=== PATIENT | male | born 1955 | race Caucasian/White ===

== ENCOUNTER 2021-01-25 05:16 | Day surgery (SDC) | payer MEDICARE, BC ==
[2021-01-16 12:07] LABS: BASOPHILS % (AUTO) 0.5 % (0-1); EOSINOPHILS # (AUTO) 0.2 X10'3 (0-0.9); EOSINOPHILS % (AUTO) 2.5 % (0-6); LYMPHOCYTES # (AUTO) 1.2 X10'3 (1.1-4.8); LYMPHOCYTES % (AUTO) 14.4 % (21-51); MEAN CORPUSCULAR HEMOGLOBIN 31.1 PG (27.0-31.0); MEAN CORPUSCULAR HGB CONC 34.4 g/dL (33.0-36.5); MEAN CORPUSCULAR VOLUME 90.5 FL (78-98); MEAN PLATELET VOLUME 7.4 FL (7.4-10.4); MONOCYTES # (AUTO) 0.7 X10'3 (0-0.9); MONOCYTES % (AUTO) 8.4 % (2-12); NEUTROPHILS # (AUTO) 6.2 X10'3 (1.8-7.7); NEUTROPHILS % (AUTO) 74.2 % (42-75); PRE OP HEMATOCRIT 42.7 % (42.0-52.0); PRE OP HEMOGLOBIN 14.7 g/dL (14.0-17.9); PRE OP PLATELET COUNT 255 X10'3 (140-440); RED BLOOD COUNT 4.72 X10'6 (4.70-6.10); RED CELL DISTRIBUTION WIDTH 14.5 % (11.5-14.5)
[2021-01-16 12:11] LABS: CLARITY,URINE CLEAR (Clear); COLOR,URINE YELLOW (Yellow); GLUCOSE, URINE NEGATIVE (Neg); PROTEIN,URINE NEGATIVE (Neg); UA COLLECTION TYPE NON-SPECIFIED
[2021-01-16 12:12] LABS: KETONES,URINE NEGATIVE (Neg); LEUKOCYTE ESTERASE ,URINE NEGATIVE (Neg); NITRITES, URINE NEGATIVE (Neg); OCCULT BLOOD,URINE TRACE-INTACT (Neg); UROBILINOGEN,URINE 0.2 E.U/dL (0.2-1.0)
[2021-01-16 12:26] LABS: HYALINE CASTS 0-3 /LPF (NEGATIVE); MUCUS STRANDS MODERATE /LPF (Neg); SQUAMOUS EPITHELIAL CELL,UR FEW /LPF (FEW)
[2021-01-16 12:27] LABS: BACTERIA,URINE 1+ /HPF (Neg); RBC,URINE 0-2 /HPF (0-2); WBC,URINE 0-4 /HPF (0-4)
[2021-01-16 12:27] LABS: ALBUMIN 3.6 G/DL (3.4-5.0); ALBUMIN/GLOBULIN RATIO 0.9 (1.1-1.5); ALKALINE PHOSPHATASE 90 IU/L (46-116); BLOOD UREA NITROGEN 19 MG/DL (7-18); BUN/CREATININE RATIO 19.8 (5.4-32.0); CALCIUM 9.4 MG/DL (8.5-10.1); CHLORIDE 108 MMOL/L (99-107); CREATININE 0.96 MG/DL (0.60-1.10); PRE OP ALT 40 U/L (30-65); PRE OP ANION GAP 13 (8-16); PRE OP AST 19 U/L (10-37); PRE OP BILIRUB, TOTAL 0.5 MG/DL (0.0-1.0); PRE OP GLUCOSE 104 MG/DL (70-104); PRE OP POTASSIUM 3.5 MMOL/L (3.4-5.1); PRE OP SODIUM 143 MMOL/L (135-145); TOTAL CARBON DIOXIDE 22.3 MMOL/L (24-32); TOTAL PROTEIN 7.6 G/DL (6.4-8.2); eGFR 78 ML/MIN
[2021-01-25] VITALS (11 sets, daily range): BP systolic 111–136; BP diastolic 63–94
[~2021-01-25] VITALS: Ht 175.3 cm; Wt 83.9 kg
[~2021-01-25 05:16] MED LIST: FLO0.4C PO; HYDR-3964 PO; LISI5TAB22 PO; ringers solution, lacted 1,000 ML IV SCH
[2021-01-25] MEDS ORDERED: cefazolin/dext.iso 2gm/50ml IV ONE (05:30)
[2021-01-25] MEDS ORDERED: famotidine 20mg tablet PO ONE (05:30)
[2021-01-25] MEDS ORDERED: BUPIVAcaine 0.5% inj/PF 30 ML ONE (06:50)
[2021-01-25] MEDS ORDERED: bacitracin 15gm ointment TP ONE (06:56)
[2021-01-25] MEDS ORDERED: acetaminophen 1,000mg/100ml IV 100 ML IV PRN (07:10)
[2021-01-25] MEDS ORDERED: ondansetron/PF 4mg/2ml inj IV PRN (07:10)
[2021-01-25] MEDS ORDERED: proCHLORperazine 10 MG/2 ml inj IV PRN (07:10)
[2021-01-25] MEDS ORDERED: morphine 4 MG/ML inj SYRINge IV PRN (07:10)
[2021-01-25] MEDS ORDERED: labetalol 20mg/4ml (5mg/ml) syringe IV PRN (07:10)
[2021-01-25] MEDS ORDERED: morphine 2 MG/ML inj. syringe IV PRN (07:10)
[2021-01-25] MEDS ORDERED: hydrALAZINE 20mg/ml inj. IV PRN (07:10)
[2021-01-25] MEDS ORDERED: ringers solution, lacted 1,000 ML IV SCH (07:10)
[2021-01-25] MEDS ORDERED: meperidine/PF 25mg/ml syringe IV PRN ×3 (07:10)
[2021-01-25] MEDS ORDERED: sevoflurane 250ml liquid IH ONE (07:12)
[2021-01-25] MEDS ORDERED: fentaNYL/PF 50MCG/1 ML 2ML syringe ONE (07:14)
[2021-01-25] MEDS ORDERED: midazolam 1 mg/ML 2ml injection ONE (07:18)
[2021-01-25] MEDS ORDERED: BUPIVAcaine 0.5% inj/PF 30 ml vial IJ ONE (07:43)
[2021-01-25] MEDS ORDERED: LIDOcaine 2% (20mg/ml) 5ml vial ONE (07:44)
[2021-01-25] MEDS ORDERED: propofol inj 20 ML IV ONE ×2 (07:44→08:18)
[2021-01-25] MEDS ORDERED: dexamethasone sod phosphate 4mg/ml inj. ONE (07:44)
[2021-01-25] MEDS ORDERED: ondansetron/PF 4mg/2ml inj ONE (07:44)
[2021-01-25] MEDS ORDERED: ePHEDrine 50MG/ML INJ. ONE (07:56)
--- NOTE | 2021-01-25 08:30 | NUR ---
Received from OR via BED, accompanied by Anesthesiologist and report given by Anesthesiologist. PATIENT WAKING UP, NO S/S OF PAIN, V/S WNL, CSM INTACT, SCD ON, PIV TO LUE, DRESSING TO RIGHT FOOT CDI WITH WALKING BOOT ON.
--- NOTE | 2021-01-25 10:40 | NUR ---
PATIENT A&OX4, DENIES PAIN, V/S WNL, CSM INTACT, SCD OFF, PIV TO LUE D/C, DRESSING TO RIGHT FOOT CDI WITH WALKING BOOT ON. ALL DISCHARGE CRITERIA HAS BEEN MET. VSS, PAIN AT A TOLERABLE LEVEL, VOIDING AND ABLE TO SAFELY AMBULATE AND TRANSFER SELF. IV TAKEN OUT WITHOUT ANY COMPLICATIONS. ALL DISCHARGE INSTRUCTIONS COVERED WITH PATIENT AND ALL QUESTIONS ANSWERED. PATIENT TAKEN OUT VIA WHEELCHAIR TO TRANSPORT VEHICLE DROVE PATIENT HOME.
== END 2021-01-25 10:40 | disposition home or self-care (01) ==
LOC: PAS 05:16
PROVIDERS: ATTEND Podiatrist Foot & Ankle Surgery
DX: M20.11 Hallux valgus (acquired), right foot (principal); M20.21 Hallux rigidus, right foot; M20.5X1 Other deformities of toe(s) (acquired), right foot; M19.071 Primary osteoarthritis, right ankle and foot; M19.072 Primary osteoarthritis, left ankle and foot; G89.4 Chronic pain syndrome; M85.88 Other specified disorders of bone density and structure, other site; I10 Essential (primary) hypertension; N40.0 Benign prostatic hyperplasia without lower urinary tract symptoms; K21.9 Gastro-esophageal reflux disease without esophagitis; Z20.822 Contact with and (suspected) exposure to COVID-19; Z79.899 Other long term (current) drug therapy; Z98.890 Other specified postprocedural states
CPT/HCPCS: 28750; 36415; 73620; 76000; 80053; 81001; 82948; 85025; 93005; A6223; C1713; J0690; J1100; J2250; J2405; J2704; J3010; J3490; J7030; J7120; S0020; U0003; U0005; Z7506; Z7508; Z7512; A4215; A4618; A6449; A7000

== ENCOUNTER 2021-05-07 06:23 | Inpatient (IN) | payer MEDICARE, BC ==
[2021-04-30 15:04] LABS: BASOPHILS % (AUTO) 0.3 % (0-1); EOSINOPHILS # (AUTO) 0.3 X10'3 (0-0.9); EOSINOPHILS % (AUTO) 3.6 % (0-6); LYMPHOCYTES # (AUTO) 1.3 X10'3 (1.1-4.8); LYMPHOCYTES % (AUTO) 16.2 % (21-51); MEAN CORPUSCULAR HEMOGLOBIN 30.5 PG (27.0-31.0); MEAN CORPUSCULAR HGB CONC 33.2 g/dL (33.0-36.5); MEAN CORPUSCULAR VOLUME 91.8 FL (78-98); MEAN PLATELET VOLUME 7.5 FL (7.4-10.4); MONOCYTES # (AUTO) 0.7 X10'3 (0-0.9); MONOCYTES % (AUTO) 8.4 % (2-12); NEUTROPHILS # (AUTO) 5.8 X10'3 (1.8-7.7); NEUTROPHILS % (AUTO) 71.5 % (42-75); PRE OP HEMATOCRIT 44.4 % (42.0-52.0); PRE OP HEMOGLOBIN 14.7 g/dL (14.0-17.9); PRE OP PLATELET COUNT 261 X10'3 (140-440); RED BLOOD COUNT 4.83 X10'6 (4.70-6.10); RED CELL DISTRIBUTION WIDTH 14.7 % (11.5-14.5)
[2021-04-30 15:21] LABS: ALBUMIN 3.6 G/DL (3.4-5.0); ALBUMIN/GLOBULIN RATIO 0.9 (1.1-1.5); ALKALINE PHOSPHATASE 107 IU/L (46-116); BLOOD UREA NITROGEN 13 MG/DL (7-18); BUN/CREATININE RATIO 13.7 (5.4-32.0); CALCIUM 9.2 MG/DL (8.5-10.1); CHLORIDE 105 MMOL/L (99-107); CREATININE 0.95 MG/DL (0.60-1.10); PRE OP ALT 33 U/L (30-65); PRE OP ANION GAP 9 (8-16); PRE OP AST 22 U/L (10-37); PRE OP BILIRUB, TOTAL 0.4 MG/DL (0.0-1.0); PRE OP GLUCOSE 100 MG/DL (70-104); PRE OP POTASSIUM 4.2 MMOL/L (3.4-5.1); PRE OP SODIUM 140 MMOL/L (135-145); TOTAL CARBON DIOXIDE 26.5 MMOL/L (24-32); TOTAL PROTEIN 7.7 G/DL (6.4-8.2); eGFR 79 ML/MIN
[2021-05-07] VITALS (20 sets, daily range): BP systolic 94–119; BP diastolic 53–76
[~2021-05-07] VITALS: Ht 175.3 cm; Wt 88.3 kg
[~2021-05-07 06:23] MED LIST changes: +cefazolin/dext.iso 2gm/50ml IV ONE; +famotidine 20mg tablet PO ONE; +tranexamic acid 650mg tablet PO ONE; +vancomycin 1,500 MG in NS 300ml IV soln IV ONE
[2021-05-07] MEDS ORDERED: proCHLORperazine 10 MG/2 ml inj IV PRN (08:35)
[2021-05-07] MEDS ORDERED: meperidine/PF 25mg/ml syringe IV PRN ×3 (08:35)
[2021-05-07] MEDS ORDERED: ondansetron/PF 4mg/2ml inj IV PRN ×2 (08:35→12:40)
[2021-05-07] MEDS ORDERED: morphine 2 MG/ML inj. syringe IV PRN (08:35)
[2021-05-07] MEDS ORDERED: ringers solution, lacted 1,000 ML IV SCH (08:35)
[2021-05-07] MEDS ORDERED: morphine 4 MG/ML inj SYRINge IV PRN (08:35)
[2021-05-07] MEDS ORDERED: ketorolac trometh. 30mg/ml inj. ONE (09:35)
[2021-05-07] MEDS ORDERED: ROPIVAcaine 0.5% (5mg/ml) 30ml vial ONE ×2 (09:35→10:18)
[2021-05-07] MEDS ORDERED: aprepitant 40mg capsule PO ONE (09:44)
[2021-05-07] MEDS ORDERED: FENTANYL CITRATE/PF 50 MCG/1 ML VIAL ONE (10:09)
[2021-05-07] MEDS ORDERED: MIDAZolam 1 MG/ML 5ML VIAL ONE (10:09)
[2021-05-07] MEDS ORDERED: LIDOcaine 1%/PF 5ML 10 MG/ML VIAL ONE (10:46)
[2021-05-07] MEDS ORDERED: propofol inj 20 ML IV ONE (10:46)
[2021-05-07] MEDS ORDERED: ePHEDrine 50MG/ML INJ. ONE (11:01)
[2021-05-07] MEDS ORDERED: ondansetron/PF 4mg/2ml inj ONE (11:03)
[2021-05-07] MEDS ORDERED: ROPIVAcaine 0.2% (10 MG/5 ML) BOLUS INJECTION INTERSCALE PRN (11:50)
--- NOTE | 2021-05-07 12:35 | NUR ---
Received from OR via BED, accompanied by Anesthesiologist DR LIU and report given by Anesthesiologist. PT VERY DROWSY, NO S/S OF DISTRESS/DISCOMFORT. RIGHT SHOULDER W/DRSG CDI, POWDER PACK, SHOULDER WRAP, SLING. Addendum: 05/07/21 at 1307 by Carrie Ly RN Amended: Links added.
[2021-05-07] MEDS ORDERED: acetaminophen 325mg tablet PO PRN (12:40)
[2021-05-07] MEDS ORDERED: HYDROmorphone inj. 0.5 MG/0.5 ML DISP.SYRIN IV PRN (12:40)
[2021-05-07] MEDS ORDERED: HYDROmorphone 1 mg/ml syringe IV PRN (12:40)
[2021-05-07] MEDS ORDERED: diphenhydrAMINE 25mg capsule PO PRN ×2 (12:40)
[2021-05-07] MEDS ORDERED: oxyCODONE IR 5mg (immed. release) tablet PO PRN ×2 (12:40)
[2021-05-07] MEDS ORDERED: bisacodyl 10mg suppository rectal RC PRN (12:40)
[2021-05-07] MEDS ORDERED: HYDROcodone/acetaminophen 5mg/325mg tablet PO PRN (12:40)
[2021-05-07] MEDS ORDERED: magnesium hydroxide 30ml (MOM) UD suspension PO PRN (12:40)
[2021-05-07] MEDS: acetaminophen 325mg tablet PO SCH ×2 (14:00→20:00)
[2021-05-07] MEDS: ROPIVAcaine 0.2%/PF PUMP/bolus 545 ML INTERSCALE SCH (14:00)
--- NOTE | 2021-05-07 14:05 | NUR ---
Report called to receiving nurse. Transferred via BED ON 02 W/2 BAGS OF Belongings, NURSES AID AT BEDSIDE TO RECEIVE PT, BLL, CALL LIGHT GIVEN, SIDE RAILS UP X 2. RECEIVING RN AWARE OF PTS ARRIVAL . Special Issues communicated to receiving nurse. Addendum: 05/07/21 at 1444 by Carrie Ly RN Amended: Links added.
--- NOTE | 2021-05-07 14:15 | NUR ---
Received from recovery room via BED, accompanied by 2 nurses and report given by Carrie SMITH. PT is alert and oriented x4 , NO S/S OF distress/discomfort noted at this time. RIGHT SHOULDER W/DRSG CDI, POWDER PACK, SHOULDER WRAP, SLING. denied pain at this moment.
[2021-05-07] MEDS: ceFAZolin/D5W- 1GM premix 50 ML IV SCH (15:35)
[2021-05-07] MEDS: potassium cl 20mEq in 1/2 NS 1,000 ML IV SCH (16:43)
--- NOTE | 2021-05-07 18:07 | NUR ---
Patient in room [facility]. I have received report from CASTRO and had the opportunity to ask questions and assume patient care.
--- NOTE | 2021-05-07 18:46 | NUR ---
Problems reprioritized. Patient report given, questions answered & plan of care reviewed with ASHLEY SMITH.
[2021-05-07] MEDS ORDERED: vancomycin/NS 1 GM ADD-VANTAGE 200 ML IV SCH (20:00)
[2021-05-07] MEDS: sennosides 8.6mg tablet PO SCH (21:59)
[2021-05-07] MEDS: tamsulosin 0.4mg capsule PO SCH (21:59)
[2021-05-08] VITALS (9 sets, daily range): BP systolic 102–150; BP diastolic 66–86
[2021-05-08] MEDS: ceFAZolin/D5W- 1GM premix 50 ML IV SCH (00:06)
[2021-05-08] MEDS: potassium cl 20mEq in 1/2 NS 1,000 ML IV SCH ×3 (00:12→11:01)
[2021-05-08] MEDS: acetaminophen 325mg tablet PO SCH ×4 (01:54→21:01)
[2021-05-08 05:34] LABS: ANION GAP 9 (8-16); CHLORIDE 107 MMOL/L (99-107); POTASSIUM 5.1 MMOL/L (3.5-5.1); SODIUM 135 MMOL/L (135-145); TOTAL CARBON DIOXIDE 18.8 MMOL/L (24-32)
--- NOTE | 2021-05-08 06:23 | NUR ---
Problems reprioritized. Patient report given, questions answered & plan of care reviewed with CARLOTTA SMITH.
--- NOTE | 2021-05-08 06:25 | NUR ---
Problems reprioritized. Patient report received, questions answered & plan of care reviewed with SARAH RAMIREZ
[2021-05-08] MEDS: aspirin 325mg tablet PO SCH (07:29)
[2021-05-08] MEDS: lisinopril 5mg tablet PO SCH (07:29)
[2021-05-08 08:11] LABS: BASOPHILS % (AUTO) 0.1 % (0-1); EOSINOPHILS % (AUTO) 0 % (0-6); HEMOGLOBIN 13.2 g/dl (14.0-17.9); LYMPHOCYTES # (AUTO) 0.4 X10'3 (1.1-4.8); LYMPHOCYTES % (AUTO) 3.2 % (21-51); MEAN CORPUSCULAR HEMOGLOBIN 30.5 PG (27.0-31.0); MEAN CORPUSCULAR VOLUME 92.2 FL (78-98); MEAN PLATELET VOLUME 7.7 FL (7.4-10.4); MONOCYTES # (AUTO) 0.6 X10'3 (0-0.9); MONOCYTES % (AUTO) 4.4 % (2-12); NEUTROPHILS # (AUTO) 12.6 X10'3 (1.8-7.7); NEUTROPHILS % (AUTO) 92.3 % (42-75); PLATELET COUNT 235 X10'3 (140-440); RED BLOOD COUNT 4.33 X10'6 (4.70-6.10); RED CELL DISTRIBUTION WIDTH 14.6 % (11.5-14.5); WHITE BLOOD COUNT 13.7 X10'3 (4.5-11.0)
[2021-05-08] MEDS: sennosides 8.6mg tablet PO SCH (21:01)
[2021-05-08] MEDS: tamsulosin 0.4mg capsule PO SCH (21:01)
[2021-05-09] VITALS: BP 107/69
[2021-05-09] MEDS: acetaminophen 325mg tablet PO SCH ×2 (01:42→08:38)
[2021-05-09 05:55] LABS: BASOPHILS % (AUTO) 0.1 % (0-1); EOSINOPHILS # (AUTO) 0.1 X10'3 (0-0.9); EOSINOPHILS % (AUTO) 0.8 % (0-6); HEMATOCRIT 36.9 % (42.0-52.0); HEMOGLOBIN 12.4 g/dl (14.0-17.9); LYMPHOCYTES # (AUTO) 1.2 X10'3 (1.1-4.8); LYMPHOCYTES % (AUTO) 11.5 % (21-51); MEAN CORPUSCULAR HEMOGLOBIN 30.8 PG (27.0-31.0); MEAN CORPUSCULAR HGB CONC 33.5 g/dL (33.0-36.5); MEAN CORPUSCULAR VOLUME 91.8 FL (78-98); MONOCYTES # (AUTO) 0.8 X10'3 (0-0.9); MONOCYTES % (AUTO) 7.8 % (2-12); NEUTROPHILS # (AUTO) 8.3 X10'3 (1.8-7.7); NEUTROPHILS % (AUTO) 79.8 % (42-75); PLATELET COUNT 211 X10'3 (140-440); RED BLOOD COUNT 4.02 X10'6 (4.70-6.10); RED CELL DISTRIBUTION WIDTH 14.9 % (11.5-14.5); WHITE BLOOD COUNT 10.4 X10'3 (4.5-11.0)
[2021-05-09 07:21] VITALS: BP 111/69
[2021-05-09] MEDS: aspirin 325mg tablet PO SCH (08:38)
[2021-05-09] MEDS: lisinopril 5mg tablet PO SCH (08:39)
--- NOTE | 2021-05-09 12:32 | NUR ---
Called [facility] and they are aware pt. needs home health.
[2021-05-09 12:35] VITALS: BP 111/67
[2021-05-09] MEDS: ROPIVAcaine 0.2%/PF PUMP/bolus 545 ML INTERSCALE SCH (13:25)
--- NOTE | 2021-05-09 13:43 | NUR ---
DISCHARGE NOTE: discussed discharge paperwork, medications, follow-up, incisional care, restrictions, and OnQ ball directions. Pt. has has the opportunity to ask as many questions as he. wants. He states he knows he has an appointment with Dr. Carvalho already and he has already bought daily ASA. He knows that home health has been ordered for him. Discussed s/sx infection and what to do if he notes any. IV DC'd pressure bandage applied, cannula intact, no s/sx bleeding noted. Pt. has gathered all of his belongings - denies anything being stored in pharmacy or hospital safe.
== END 2021-05-09 14:20 | disposition home health service (06) | DRG 483 ==
LOC: PAS 06:23 → EDSTATUS 09:30 → PAS IN 12:40 → SUR 3N 14:10
PROVIDERS: ADMIT Orthopaedic Surgery; ATTEND Orthopaedic Surgery
PROC: 0LS30ZZ Reposition Right Upper Arm Tendon, Open Approach (ICD-10-PCS; 2021-05-07)
PROC: 3E0T3BZ Introduction of Anesthetic Agent into Peripheral Nerves and Plexi, Percutaneous Approach (ICD-10-PCS; 2021-05-07)
PROC: 3E0T33Z Introduction of Anti-inflammatory into Peripheral Nerves and Plexi, Percutaneous Approach (ICD-10-PCS; 2021-05-07)
PROC: 0RRJ00Z Replacement of Right Shoulder Joint with Reverse Ball and Socket Synthetic Substitute, Open Approach (ICD-10-PCS; principal; 2021-05-07 10:12)
DX: M19.011 Primary osteoarthritis, right shoulder (principal); D62 Acute posthemorrhagic anemia; M65.811 Other synovitis and tenosynovitis, right shoulder; M75.101 Unspecified rotator cuff tear or rupture of right shoulder, not specified as traumatic; R05.9 Cough, unspecified; R49.0 Dysphonia; M85.80 Other specified disorders of bone density and structure, unspecified site; G47.30 Sleep apnea, unspecified; I10 Essential (primary) hypertension; E66.9 Obesity, unspecified; K21.9 Gastro-esophageal reflux disease without esophagitis; N40.0 Benign prostatic hyperplasia without lower urinary tract symptoms; Z68.28 Body mass index [BMI] 28.0-28.9, adult; Z79.899 Other long term (current) drug therapy; Z71.6 Tobacco abuse counseling; Z84.89 Family history of other specified conditions
CPT/HCPCS: 36415; 80051; 80053; 82948; 85025; 87081; 93005; 97110; 97161; 97530; 97535; A4565; A4618; A7000; C1776; G0378; J0690; J1885; J2250; J2405; J2704; J2795; J3010; J3370; J3480; J3490; J7040; J7120; J8501; U0003; U0005

== ENCOUNTER → 2021-10-30 | Day surgery (SDC) | payer MEDICARE, BC ==
[~2021-10-30] MED LIST changes: +CHOL20002 PO; -cefazolin/dext.iso 2gm/50ml IV ONE; -famotidine 20mg tablet PO ONE; -ringers solution, lacted 1,000 ML IV SCH; -tranexamic acid 650mg tablet PO ONE; -vancomycin 1,500 MG in NS 300ml IV soln IV ONE
== END | disposition home or self-care (01) ==
LOC: VAS 11:10 → RAD 11:11
PROVIDERS: ATTEND Nurse Practitioner Family
DX: M71.22 Synovial cyst of popliteal space [Baker], left knee (principal); M25.375 Other instability, left foot; M25.374 Other instability, right foot; M25.472 Effusion, left ankle; M25.471 Effusion, right ankle; M21.42 Flat foot [pes planus] (acquired), left foot; M21.41 Flat foot [pes planus] (acquired), right foot; M79.672 Pain in left foot; M20.12 Hallux valgus (acquired), left foot; M25.572 Pain in left ankle and joints of left foot; M19.072 Primary osteoarthritis, left ankle and foot
CPT/HCPCS: 93971

== ENCOUNTER 2022-10-30 16:08 | Emergency (ER) | payer MEDICARE, BC ==
[~2022-10-30] VITALS: Ht 175.3 cm; Wt 79.5 kg
[2022-10-30 16:11] VITALS: TEMP 98.9
[2022-10-30 16:52] LABS: BASOPHILS % (AUTO) 0.4 % (0-1); EOSINOPHILS # (AUTO) 0.3 X10'3 (0-0.9); EOSINOPHILS % (AUTO) 2.7 % (0-6); HEMATOCRIT 36.8 % (42.0-52.0); HEMOGLOBIN 12.1 g/dl (14.0-17.9); LYMPHOCYTES # (AUTO) 0.8 X10'3 (1.1-4.8); LYMPHOCYTES % (AUTO) 7.9 % (21-51); MEAN CORPUSCULAR HEMOGLOBIN 30.7 PG (27.0-31.0); MEAN CORPUSCULAR HGB CONC 32.8 g/dL (33.0-36.5); MEAN CORPUSCULAR VOLUME 93.6 FL (78-98); MONOCYTES % (AUTO) 9.1 % (2-12); NEUTROPHILS # (AUTO) 8.5 X10'3 (1.8-7.7); NEUTROPHILS % (AUTO) 79.9 % (42-75); PLATELET COUNT 329 X10'3 (140-440); RED BLOOD COUNT 3.93 X10'6 (4.70-6.10); RED CELL DISTRIBUTION WIDTH 16.3 % (11.5-14.5); WHITE BLOOD COUNT 10.6 X10'3 (4.5-11.0)
[2022-10-30 17:07] LABS: ALANINE AMINOTRANSFERASE 10 U/L (12-78); ALBUMIN 3.1 G/DL (3.4-5.0); ALBUMIN/GLOBULIN RATIO 0.7 (1.1-1.5); ALKALINE PHOSPHATASE 156 IU/L (46-116); ANION GAP 10 (8-16); ASPARTATE AMINO TRANSFERASE 11 U/L (10-37); BILIRUBIN,TOTAL 0.6 MG/DL (0.1-1.0); BLOOD UREA NITROGEN 11 MG/DL (7-18); BUN/CREATININE RATIO 12.4 (10.0-20.0); CALCIUM 9.7 MG/DL (8.5-10.1); CHLORIDE 105 MMOL/L (99-107); CREATININE 0.89 MG/DL (0.60-1.10); GLUCOSE 121 MG/DL (70-104); POTASSIUM 3.2 MMOL/L (3.5-5.1); SODIUM 139 MMOL/L (135-145); TOTAL CARBON DIOXIDE 23.9 MMOL/L (24-32); TOTAL PROTEIN 7.3 G/DL (6.4-8.2); eCRCL 79 ML/MIN; eGFR 85 ML/MIN
[2022-10-30 17:16] LABS: PRO BRAIN NATRIURETIC PEPTIDE 121 PG/ML (0-125)
[2022-10-30] MEDS ORDERED: dexamethasone sod phosphate 10mg/ml inj IM STA (18:19)
[2022-10-30] MEDS ORDERED: potassium chloride 10mEq ER tablet PO SCH (18:20)
[2022-10-30] MEDS ORDERED: potassium chloride 10mEq ER tablet PO ONE (18:20)
[2022-10-30] MEDS ORDERED: NAPR-1154 PO (18:25)
[2022-10-30 19:09] VITALS: BP 109/71; PULSE 84; RESP 18; O2SAT 97
== END 2022-10-30 19:11 | disposition home or self-care (01) ==
LOC: ER 16:09
DX: R07.81 Pleurodynia (principal); G89.29 Other chronic pain; Z88.8 Allergy status to other drugs, medicaments and biological substances; Z79.899 Other long term (current) drug therapy
CPT/HCPCS: 36415; 71045; 80053; 83880; 84484; 85025; 93005; 96372; 99285; J1100